=== PATIENT | male | born 1980 | race African-American/Black ===

== ENCOUNTER 2018-07-07 09:16 | Emergency (ER) | payer MEDICAID ==
[~2018-07-07] VITALS: Ht 182.9 cm; Wt 104.0 kg
[2018-07-07] MEDS ORDERED: LIDOCAINE HCL/PF 1% 10 MG/ML 5ML VIAL IJ ONE (16:00)
[2018-07-07 18:26] VITALS: BP 133/89
== END 2018-07-07 18:29 | disposition home or self-care (01) ==
LOC: ER 10:05
DX: L03.012 Cellulitis of left finger (principal); E11.9 Type 2 diabetes mellitus without complications; I10 Essential (primary) hypertension; F79 Unspecified intellectual disabilities; F84.0 Autistic disorder; G40.909 Epilepsy, unspecified, not intractable, without status epilepticus
CPT/HCPCS: 10060; 82962; 99283; J3490; Z7610